=== PATIENT | male | born 1990 | race African-American/Black ===

== ENCOUNTER 2016-07-26 11:13 | Emergency (ER) | payer OTHER ==
[~2016-07-26] VITALS: Ht 180.3 cm; Wt 99.8 kg
[~2016-07-26 11:13] MED LIST: AZITHROMYC200 MG/52 PO; AZITHROMYCIN 2250 MG PO; IBUPROFEN100 MG/52 PO; NAPROSYN500 MG PO; PROTOZONE; VENTOLIN HFA 1818 GM INH; ZPAK PO
[2016-07-26] MEDS ORDERED: PROVENTIL HFA6.7 G1 INH (12:37)
[2016-07-26] MEDS ORDERED: PROMETHAZINE-C120 ML PO (12:37)
[2016-07-26 13:14] VITALS: BP 146/98
== END 2016-07-26 13:19 | disposition home or self-care (01) ==
LOC: ER 11:13
DX: J11.1 Influenza due to unidentified influenza virus with other respiratory manifestations (principal); J45.909 Unspecified asthma, uncomplicated; F10.99 Alcohol use, unspecified with unspecified alcohol-induced disorder

== ENCOUNTER 2020-10-27 21:04 | Emergency (ER) | payer OTHER ==
[~2020-10-27] VITALS: Ht 180.3 cm; Wt 95.3 kg
[~2020-10-27 21:04] MED LIST changes: +PROMETHAZINE-C120 ML PO; +PROVENTIL HFA6.7 G1 INH
[2020-10-27] MEDS ORDERED: VANACOF DM LIQ240 ML PO (22:17)
[2020-10-27] MEDS ORDERED: PROAIR HFA8.5 GM INH (22:17)
[2020-10-27] MEDS ORDERED: NAPROSYN500 MG PO (22:17)
[2020-10-27] MEDS ORDERED: [UNRECOGNIZED DRUG - OTHER] PO (22:17)
[2020-10-27 22:46] VITALS: BP 115/93
== END 2020-10-27 22:48 | disposition home or self-care (01) ==
LOC: ER 21:04
DX: J06.9 Acute upper respiratory infection, unspecified (principal); J45.909 Unspecified asthma, uncomplicated; G43.909 Migraine, unspecified, not intractable, without status migrainosus; Z87.891 Personal history of nicotine dependence; Z20.822 Contact with and (suspected) exposure to COVID-19